=== PATIENT | female | born 1965 | race Caucasian/White ===

== ENCOUNTER → 2017-05-17 | Outpatient (CLI) | payer OTHER ==
[~2017-05-17] MED LIST: FERR324T5 PO; GABA250S6 PO
[2017-05-17 13:59] LABS: BASO % 1 % (0-3); EOS % 2 % (0-3); HEMOGLOBIN 13.3 g/dL (12.0-15.5); LYMPH # 1.8 x10^3/uL (1.0-4.8); LYMPH % 29 % (24-48); MEAN CORPUSCULAR HEMOGLOBIN 27 pg (25-35); MEAN CORPUSCULAR HGB CONC 32 g/dL (31-37); MEAN CORPUSCULAR VOLUME 82 fL (79-100); MONO % 6 % (0-9); NEUT % 62 % (31-73); PLATELET COUNT 225 x10^3/uL (140-400); RED BLOOD COUNT 4.99 x10^6/uL (3.50-5.40); RED CELL DISTRIBUTION WIDTH 16.8 % (11.5-14.5)
[2017-05-17 14:21] LABS: ALBUMIN 4.2 g/dL (3.4-5.0); ALBUMIN/GLOBULIN RATIO 1.3 (1.0-1.7); CALCIUM 9.2 mg/dL (8.5-10.1); CREATININE 0.7 mg/dL (0.6-1.0); GFR 88.2; POTASSIUM 3.8 mmol/L (3.5-5.1); TOTAL BILIRUBIN 0.7 mg/dL (0.2-1.0); TOTAL PROTEIN 7.4 g/dL (6.4-8.2)
[2017-05-17 14:22] LABS: CHOLESTEROL/HDL RATIO 3.3
== END | disposition home or self-care (01) ==
LOC: LAB 13:28
PROVIDERS: ATTEND Nurse Practitioner Adult Health
DX: D64.89 Other specified anemias (principal); N92.0 Excessive and frequent menstruation with regular cycle
CPT/HCPCS: 36415; 80053; 80061; 84443; 85025

== ENCOUNTER → 2017-06-17 | Outpatient (CLI) | payer OTHER | END | disposition home or self-care (01) | LOC: MRI 14:56 | DX: M48.02 Spinal stenosis, cervical region (principal); M25.78 Osteophyte, vertebrae | CPT/HCPCS: 72141 ==

== ENCOUNTER → 2017-07-07 | Outpatient (CLI) | payer OTHER | END | disposition home or self-care (01) | LOC: PNCL 13:07 | DX: M50.30 Other cervical disc degeneration, unspecified cervical region (principal) | CPT/HCPCS: 99214 ==

== ENCOUNTER → 2017-08-10 | Outpatient (CLI) | payer OTHER | END | disposition home or self-care (01) | LOC: PNCL 14:00 | DX: M50.10 Cervical disc disorder with radiculopathy, unspecified cervical region (principal); M48.02 Spinal stenosis, cervical region | CPT/HCPCS: 99212 ==

== ENCOUNTER → 2020-01-22 | Outpatient (CLI) | payer OTHER ==
[~2020-01-22] MED LIST changes: +ACET500T68 PO; +DOCO100C PO; +GREE250C PO; +MULT-445 PO; +UBID50TA PO; +st johns wort
== END | disposition home or self-care (01) ==
LOC: LAB 12:34
PROVIDERS: ATTEND Internal Medicine Pulmonary Disease
DX: R05 Cough (principal); R51 Headache; J02.9 Acute pharyngitis, unspecified; Z20.828 Contact with and (suspected) exposure to other viral communicable diseases
CPT/HCPCS: U0003-CS

== ENCOUNTER → 2021-02-06 | Outpatient (CLI) | payer OTHER | LOC: LAB 17:03 | PROVIDERS: ATTEND Internal Medicine Pulmonary Disease | DX: J02.9 Acute pharyngitis, unspecified (principal); R68.83 Chills (without fever); M79.10 Myalgia, unspecified site; Z20.822 Contact with and (suspected) exposure to COVID-19 | CPT/HCPCS: U0003; U0005 ==

== ENCOUNTER 2021-08-14 18:32 | Emergency (ER) | payer OTHER ==
[~2021-08-14] VITALS: Ht 167.6 cm; Wt 75.0 kg
--- NOTE | 2021-08-14 19:04 | ED.ADGEN ---
Past Medical History Past Surgical History: Other Additional Past Surgical Histo: adenoids General Adult EDM: Chief Complaint: FLANK PAIN HPI: HPI: Patient is a 55 year old female coming in for left leg pain. Patient states she has had dull left flank pain off and on for the past week. Patient had attributed to musculoskeletal pain. Patient states she urinated around 5 AM this morning when is normal. To urinate again around 9 AM and noticed blood with small clots throughout the day. Patient states the pain is minimal with standing a little bit worse when she was sitting to drive home. Patient denies any past medical history, and does not take any medications. Patient does have a family history of kidney stones. She denies any dysuria. States she has had intermittent pain in the same spot on her left lateral back. States the pain has not moved. Patient is 3 years postmenopausal, and states she has not had any vaginal bleeding since Review of Systems: Review of Systems: All other systems within normal limits except for as noted in the HPI Allergies: Allergies: Allergies Coded Allergies Type Severity Reaction Last Updated Verified No Known Drug Allergies 05/11/13 No Physical Exam: PE: Constitutional: Well developed, well nourished, no acute distress, non-toxic appearance. [] HENT: Normocephalic, atraumatic, bilateral external ears normal, nose normal. [] Eyes: PERRLA, conjunctiva normal, no discharge. [] Neck: No rigidity, supple, no stridor. [] Cardiovascular: Regular rate and rhythm, brisk cap refill [] Lungs & Thorax: Non labored symmetric respirations, no tachypnea or respiratory distress [] Abdomen: Soft, nondistended, no abdominal pain. Skin: Warm, dry, no erythema, no rash. [] Back: Unremarkable, no step-off deformities, no point tenderness spine, left CVA tenderness Extremities: No deformities, range of motion grossly intact, no lower extremity edema [] Neurologic: Alert and oriented X 3, no focal deficits noted. [] Psychologic: Affect normal, judgement normal, mood normal. [] Current Patient Data: Labs: Laboratory Tests Test 08/14/21 18:50 08/14/21 18:55 Urine Collection Type Unknown Urine Color Red Urine Clarity Bloody Urine pH (<5.0-8.0) Urine Specific [place] (1.000-1.030) Urine Protein mg/dL (NEG-TRACE) Urine Glucose (UA) mg/dL (NEG) Urine Ketones (Stick) mg/dL (NEG) Urine Blood (NEG) Urine Nitrite (NEG) Urine Bilirubin (NEG) Urine Urobilinogen Dipstick mg/dL (0.2 mg/dL) Urine Leukocyte Esterase (NEG) Urine RBC Tntc /HPF (0-2) Urine WBC 20-40 /HPF (0-4) Urine Bacteria Few /HPF (0-FEW) White Blood Count 11.3 x10^3/uL (4.0-11.0) H Red Blood Count 4.96 x10^6/uL (3.50-5.40) Hemoglobin 13.8 g/dL (12.0-15.5) Hematocrit 42.3 % (36.0-47.0) Mean Corpuscular Volume 85 fL (79-100) Mean Corpuscular Hemoglobin 28 pg (25-35) Mean Corpuscular Hemoglobin Concent 33 g/dL (31-37) Red Cell Distribution Width 14.6 % (11.5-14.5) H Platelet Count 259 x10^3/uL (140-400) Neutrophils (%) (Auto) 80 % (31-73) H Lymphocytes (%) (Auto) 13 % (24-48) L Monocytes (%) (Auto) 5 % (0-9) Eosinophils (%) (Auto) 1 % (0-3) Basophils (%) (Auto) 1 % (0-3) Neutrophils # (Auto) 9.1 x10^3/uL (1.8-7.7) H Lymphocytes # (Auto) 1.5 x10^3/uL (1.0-4.8) Monocytes # (Auto) 0.5 x10^3/uL (0.0-1.1) Eosinophils # (Auto) 0.1 x10^3/uL (0.0-0.7) Basophils # (Auto) 0.1 x10^3/uL (0.0-0.2) Sodium Level 140 mmol/L (136-145) Potassium Level 3.5 mmol/L (3.5-5.1) Chloride Level 101 mmol/L (98-107) Carbon Dioxide Level 31 mmol/L (21-32) Anion Gap 8 (6-14) Blood Urea Nitrogen 18 mg/dL (7-20) Creatinine 1.0 mg/dL (0.6-1.0) Estimated GFR (Cockcroft-Gault) 57.6 BUN/Creatinine Ratio 18 (6-20) Glucose Level 87 mg/dL (70-99) Calcium Level 9.5 mg/dL (8.5-10.1) Total Bilirubin 0.7 mg/dL (0.2-1.0) Aspartate Amino Transferase (AST) 16 U/L (15-37) Alanine Aminotransferase (ALT) 26 U/L (14-59) Alkaline Phosphatase 97 U/L (46-116) Total Protein 8.0 g/dL (6.4-8.2) Albumin 4.5 g/dL (3.4-5.0) Albumin/Globulin Ratio 1.3 (1.0-1.7) Laboratory Tests 08/14/21 18:55 Laboratory Tests 08/14/21 18:55 Vital Signs: Vital Signs Date Time Temp Pulse Resp B/P (MAP) Pulse Ox O2 Delivery O2 Flow Rate FiO2 08/14/21 18:45 99.1 79 18 180/103 (128) 99 Room Air 99.1 EKG: EKG: [] Heart Score: C/O Chest Pain: No Risk Factors: Risk Factors: DM, Current or recent (<one month) smoker, HTN, HLP, family history of CAD, obesity. Risk Scores: Score 0 - 3: 2.5% MACE over next 6 weeks - Discharge Home Score 4 - 6: 20.3% MACE over next 6 weeks - Admit for Clinical Observation Score 7 - 10: 72.7% MACE over next 6 weeks - Early Invasive Strategies Radiology/Procedures: Radiology/Procedures: [facility] [address] [place] [address] IMAGING REPORT Signed PATIENT: SIMON COSTELLO ACCOUNT: [id number] : 1965 LOCATION: ER AGE: 55 SEX: F EXAM STATUS: PRE ER ORD. PHYSICIAN: LILA BURNS MD REASON: left flank pain PROCEDURE: CT ABDOMEN PELVIS WO CONTRAST INDICATION: Reason: left flank pain / Spl. Instructions: / History: COMPARISON: None. TECHNIQUE: Axial CT images were obtained through the abdomen and pelvis without intravenous contrast. One or more of the following individualized dose reduction techniques were utilized for this examination: 1. Automated exposure control; 2. Adjustment of the mA and/or kV according to patient size; 3. Use of iterative reconstruction technique. FINDINGS: Within the right groin there is some enlarged lymph nodes suspected measuring up to about 12 mm short axis. Vascular: No abdominal aortic aneurysm. Hepatobiliary: Numerous low-density lesions scattered throughout both lobes of the liver with many of the larger 1's having the appearance of cystic lesions but some of them not well characterize given small size and noncontrast exam and could be solid or cystic. Pancreas: No definite adjacent fluid collection. Limited assessment secondary to lack of contrast. Nodularity of the partially visualized left breast. Spleen: Spleen unremarkable. Renal/Bladder: Bladder is partially distended. Mild prominence of bilateral extrarenal pelvis. Gastrointestinal: No periappendiceal inflammatory changes. No dilated loops of bowel suggest obstruction. There is a mildly lobulated contour of the uterus. Cause such as fibroid not excluded. Degenerative changes of the spine and hips. IMPRESSION: * Mild prominence of the bilateral extrarenal pelvis without a definite radiopaque obstructive ureter stone at this time. There is some indistinctness of the fat adjacent to the urinary bladder therefore mild urinary tract infection is a consideration and would correlate with symptoms. * Nonspecific mildly enlarged lymph nodes in the right groin. * Partial visualization of nodularity of the left breast parenchyma. If the patient has not had a recent mammogram may be helpful to obtain one to better assess. This could be performed on a nonemergent basis. Electronically signed by: Karthik Holland MD (08/14/2021 7:54 PM) [id number] DICTATED and SIGNED BY: KARTHIK HOLLAND MD DATE: 08/14/21 [id number] [] Course & Med Decision Making: Course & Med Decision Making Pertinent Labs and Imaging studies reviewed. (See chart for details) No stones visible on CT but discussed with her that there is stranding around the bladder which could indicate cystitis. Patient has had this flank pain chronically and was concerned about her kidney status and hematuria. Discussed treatment for cystitis and increase fluid intake to avoid urinary blood clots. Discussed return precautions for worsening symptoms [] Dragon Disclaimer: Dragon Disclaimer: This electronic medical record was generated, in whole or in part, using a voice recognition dictation system. Departure Departure Impression: Primary Impression: Hemorrhagic cystitis Disposition: HOME / SELF CARE / HOMELESS Condition: STABLE Referrals: NO PCP (PCP) Patient Instructions: Urinary Tract Infection Scripts Cefuroxime Axetil (CEFUROXIME) 500 Mg Tablet 1 TAB PO BID for antibiotic for 7 Days, #14 TAB 0 Refills Prov: LILA BURNS MD 08/14/21 LILA BURNS MD Aug 14, 2021 19:04
[2021-08-14 19:11] LABS: BASO # 0.1 x10^3/uL (0.0-0.2); BASO % 1 % (0-3); EOS # 0.1 x10^3/uL (0.0-0.7); EOS % 1 % (0-3); HEMATOCRIT 42.3 % (36.0-47.0); HEMOGLOBIN 13.8 g/dL (12.0-15.5); LYMPH # 1.5 x10^3/uL (1.0-4.8); LYMPH % 13 % (24-48); MEAN CORPUSCULAR HEMOGLOBIN 28 pg (25-35); MEAN CORPUSCULAR HGB CONC 33 g/dL (31-37); MEAN CORPUSCULAR VOLUME 85 fL (79-100); MONO # 0.5 x10^3/uL (0.0-1.1); MONO % 5 % (0-9); NEUT # 9.1 x10^3/uL (1.8-7.7); NEUT % 80 % (31-73); PLATELET COUNT 259 x10^3/uL (140-400); RED BLOOD COUNT 4.96 x10^6/uL (3.50-5.40); RED CELL DISTRIBUTION WIDTH 14.6 % (11.5-14.5); WHITE BLOOD COUNT 11.3 x10^3/uL (4.0-11.0)
[2021-08-14 19:17] LABS: CLARITY,URINE BLOODY; COLOR,URINE RED
[2021-08-14 19:18] LABS: RBC,URINE TNTC /HPF (0-2)
[2021-08-14 19:19] LABS: CALCIUM 9.5 mg/dL (8.5-10.1); GFR 57.6; POTASSIUM 3.5 mmol/L (3.5-5.1)
[2021-08-14 19:19] LABS: BACTERIA,URINE FEW /HPF (0-FEW); WBC,URINE 20-40 /HPF (0-4)
[2021-08-14 19:25] LABS: ALBUMIN 4.5 g/dL (3.4-5.0); ALBUMIN/GLOBULIN RATIO 1.3 (1.0-1.7); TOTAL BILIRUBIN 0.7 mg/dL (0.2-1.0)
--- NOTE | 2021-08-14 19:57 | RAD ---
INDICATION: Reason: left flank pain / Spl. Instructions: / History: COMPARISON: None. TECHNIQUE: Axial CT images were obtained through the abdomen and pelvis without intravenous contrast. One or more of the following individualized dose reduction techniques were utilized for this examinat ion: 1. Automated exposure control; 2. Adjustment of the mA and/or kV according to patient size; 3 . Use of iterative reconstruction technique. FINDINGS: Within the right groin there is some enlarged lymph nodes suspected measuring up to about 12 mm short axis. Vascular: No abdominal aortic aneurysm. Hepatobiliary: Numerous low-density lesions scattered throughout both lobes of the liver with many of the larger 1's having the appearance of cystic lesions but some of them not well characterize given small size and noncontrast exam and could be solid or cystic. Pancreas: No definite adjacent fluid collection. Limited assessment secondary to lack of contrast. Nodularity of the partially visualized left breast. Spleen: Spleen unremarkable. Renal/Bladder: Bladder is partially distended. Mild prominence of bilateral extrarenal pelvis. Gastrointestinal: No periappendiceal inflammatory changes. No dilated loops of bowel suggest obstruct ion. There is a mildly lobulated contour of the uterus. Cause such as fibroid not excluded. Degenerative changes of the spine and hips. IMPRESSION: * Mild prominence of the bilateral extrarenal pelvis without a definite radiopaque obstructive uret er stone at this time. There is some indistinctness of the fat adjacent to the urinary bladder theref ore mild urinary tract infection is a consideration and would correlate with symptoms. * Nonspecific mildly enlarged lymph nodes in the right groin. * Partial visualization of nodularity of the left breast parenchyma. If the patient has not had a re cent mammogram may be helpful to obtain one to better assess. This could be performed on a nonemergen t basis. Electronically signed by: Naman Holland MD (08/14/2021 7:54 PM) [id number]
[2021-08-14 20:15] VITALS: BP 143/68
[2021-08-14] MEDS ORDERED: CEFU500T46 PO (20:16)
[2021-08-14] MEDS ORDERED: cefTRIAXone IV Push 1 GM VIAL. IVP ONE (20:45)
== END 2021-08-14 20:35 | disposition home or self-care (01) ==
LOC: ER 18:32
DX: N30.90 Cystitis, unspecified without hematuria (principal)
CPT/HCPCS: 36415; 74176; 80053; 81001; 85025; 87086; 96374; 99284; J0696; 87077; 87186